=== PATIENT | male | born 2000 | race Hispanic/Latino ===

== ENCOUNTER 2024-02-13 15:41 | Emergency (ER) | payer BC ==
[~2024-02-13] VITALS: Ht 175.3 cm; Wt 78.0 kg
[2024-02-13 15:59] VITALS: TEMP 98.2
[2024-02-13 16:15] VITALS: BP 124/68; PULSE 62; RESP 18; O2SAT 99
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
[2024-02-13] MEDS ORDERED: CIPR7.5D7 OTIC (16:52)
== END 2024-02-13 17:05 | disposition home or self-care (01) ==
LOC: EDH 15:41
DX: T70.0XXA Otitic barotrauma, initial encounter (principal); Z79.899 Other long term (current) drug therapy; X58.XXXA Exposure to other specified factors, initial encounter; Y93.89 Activity, other specified; Y92.89 Other specified places as the place of occurrence of the external cause; Y99.8 Other external cause status
CPT/HCPCS: 99283